=== PATIENT | male | born 1975 | race Caucasian/White ===

== ENCOUNTER 2016-05-17 21:10 | Emergency (ER) | payer SELFPAY ==
[~2016-05-17 21:10] MED LIST: Sodium Chloride 0.9% 100 ML BAG ONE
[2016-05-17] MEDS ORDERED: diphenhydrAMINE HCl 50 MG/ML 1 ML VIAL ONE (21:38)
[2016-05-17] MEDS ORDERED: Metoclopramide HCl 10 MG/2 ML VIAL ONE (21:38)
[2016-05-17] MEDS ORDERED: Ketorolac Tromethamine 30 MG/ML VIAL ONE (22:19)
--- NOTE | 2016-05-17 23:12 | ERRECORD ---
[facility] EMERGENCY RECORD ADMIN (21:56 BCRI) MERGE: Ambulance Tue May 17, 2016 21:00. HPI HEADACHE CHIEF COMPLAINT: Patient presents for evaluation of migraine headache. (23:00 ALMO) HISTORIAN: History provided by patient. (23:00 ALMO) LOCATION: Symptoms are localized, most severe in the frontal region. (23:00 ALMO) QUALITY: Described as similar to previous episodes. (23:00 ALMO) SEVERITY: Maximum severity of symptoms mild, Currently symptoms are severe. (23:00 ALMO) TIME COURSE: Gradual onset of symptoms, Date and time of onset was 05/17/2016 17:00, Symptoms are worsening. (23:00 ALMO) ASSOCIATED WITH: No associated symptoms. (23:00 ALMO) EXACERBATED BY: Patient's condition exacerbated by nothing. (23:00 ALMO) RELIEVED BY: Patient's condition relieved by nothing. (23:00 ALMO) E/M CAVEAT: Emergency room caveat invoked due to, In chcf, brought by PD. (23:04 ALMO) ROS (23:05 ALMO) CONSTITUTIONAL: Historian denies chills, denies fever. NEUROLOGIC: Historian denies dizziness, denies dysphasia, denies focal weakness, reports headache, denies mental status changes. PSYCHIATRIC: in custody. NOTES: All systems reviewed, negative except as described above. PAST MEDICAL HISTORY (22:11 BCRI) MEDICAL HISTORY: Past medical history includes neurological disease, migraine headaches, Flu vaccine not up to date, Tetanus immunization up to date, Pneumococcal vaccine not up to date, Notes: Spinal fusion surgery x 2 last year.,. MALE SURGICAL HISTORY: Spinal fusion surgery x 2 last year., Surgical history of appendectomy. BACK SURGERY AND RIGHT EYE ORBIT PLATE WIRE AND SCREW FACE. PSYCHIATRIC HISTORY: No previous psychiatric history, No previous psychiatric history,. SOCIAL HISTORY: Patient denies alcohol use, Patient currently uses tobacco, smokes cigarettes, daily, Patient smokes 1 pack per day, Patient denies alcohol use, Patient denies drug use, Patient currently uses tobacco, smokes cigarettes, daily, Patient has smoked for 20 years, Lives at home, with family. FAMILY HISTORY: Family istory is not significant, Family istory is not significant. KNOWN ALLERGIES No Known Allergies: Source: Patient CURRENT MEDICATIONS (22:32 BCRI) &a-1R&a+25V*p+0X*g6442R*c202B*c15G*c2P*p-0X&a-25V&a+1R Name: Elio Hayes : 1975 M40 MedRec: [id number] AcctNum: [id number] Prepared: neema May 17, 2016 23:15 by Interface Page 1 of 3 pMD [facility] EMERGENCY RECORD None VITAL SIGNS VITAL SIGNS: Pulse: 84, Resp: 17, Temp: 98.5 (Oral), O2 sat: 96 on Room Air, Time: 05/17/2016 22:10. (22:10 BCRI) BP: 122/74, Pulse: 77, Resp: 16, Pain: 5, O2 sat: 98 on Room Air, Time: 05/17/2016 22:24. (22:24 BCRI) BP: 138/76, Pulse: 75, Resp: 16, Pain: 0, O2 sat: 99 on ra, Time: 05/17/2016 22:45. (22:45 BCRI) PHYSICAL EXAM (23:05 ALMO) CONSTITUTIONAL: Vital Signs Reviewed. HEAD: Head exam included findings of head atraumatic, normocephalic. EYES: Pupils equally round and reactive to light, Extraocular muscles intact. ENT: Mouth exam normal, mucous membranes moist. NECK: Neck exam included findings of normal range of motion, Trachea midline. RESPIRATORY CHEST: Respiratory exam included findings of no respiratory distress. CARDIOVASCULAR: Cardiovascular exam included findings of heart rate regular rate and rhythm. ABDOMEN MALE: Abdominal exam included findings of abdomen nontender. BACK: Back exam included findings of normal inspection. NEURO: [place] coma scale 15, Neuro exam findings include patient oriented to person, place and time, Speech normal, Gait normal, Memory normal, Cranial nerves intact, no focal motor deficits, no cerebellar deficits, no nystagmus. SKIN: Skin exam included findings of skin warm, dry, and normal in color. MEDICATION ADMINISTRATION SUMMARY Drug Name: *Benadryl injection, Dose Ordered: 12.5 mg, Route: IV Push, Status: Given, Time: 22:27 05/17/2016, Drug Name: *Toradol intravenous, Dose Ordered: 30 mg, Route: IV Push, Status: Given, Time: 22:23 05/17/2016, Drug Name: *Reglan injection, Dose Ordered: 10 mg, Route: IV Push, Status: Given, Time: 21:56 05/17/2016, *Additional information available in notes, Detailed record available in Medication Service section. DOCTOR NOTES (23:08 TERRY) RE-EVALUATION: Routine re-evaluation, after administration of analgesics, Routine re-evaluation, after administration of antiemetics, The patient's condition has improved, Pt sleeping. &a-1R&a+25V*p+0X*y9972N*c202B*c15G*c2P*p-0X&a-25V&a+1R Name: Elio Hayes : 1975 M40 MedRec: [id number] AcctNum: [id number] Prepared: MonMay 17, 2016 23:15 by Interface Page 2 of 3 pMD [facility] EMERGENCY RECORD PROBLEM LIST No recorded problems DIAGNOSIS (23:01 ADEA) FINAL: PRIMARY: Chronic migraine. PRESCRIPTION No recorded prescriptions DISPOSITION (23:01 ADEA) PATIENT: Disposition Type: Discharge, Disposition: Discharge to Intermediate, Disposition Transport: Police, Condition: Improved. Patient left the department. Lopez: MAVERICK=KENNY Soto, Saleem STEWART=MD Alejandro, Christos PARIKH=KENNY Ludwig, Huma &a-1R&a+25V*p+0X*o1045A*c202B*c15G*c2P*p-0X&a-25V&a+1R Name: Elio Hayes : 1975 M40 MedRec: [id number] AcctNum: [id number] Prepared: MonMay 17, 2016 23:15 by Interface Page 3 of 3 pMD MTDD
--- NOTE | 2016-05-17 23:22 | PICIS ---
[facility] EMERGENCY RECORD ADMIN MERGE: Ambulance MonMay 17, 2016 21:00. (21:56 BCRI) TRIAGE (21:56 BCRI) TRIAGE NOTES: onset of s/s at 1700; pt reports vomiting x3 today; hx of migraines, off of fioricet for 4-5 months. (21:56 BCRI) PATIENT: NAME: Elio Hayes, AGE: 40, GENDER: male, : Mon1975, TIME OF GREET: MonMay 17, 2016 21:10, PREFERRED LANGUAGE: [place]ankan, ETHNICITY: Not or , FALL RISK: NO, ECODE BILLING MAP: [facility], SSN: [id number], Zip Code: [address], KG WEIGHT: 122.47, PHONE: , , , PERSON ID: [id number], PCP: Head. (21:56 BCRI) COMPLAINT: MIGRAINE, NAUSEA. (21:56 BCRI) ADMISSION: URGENCY: 3 Urgent, ADMISSION SOURCE: Detention/Correction, TRANSPORT: AMBULANCE - [facility], BED: TRIAGE. (21:56 BCRI) SIRS SCORING: Heart Rate 55-109 (0), Temp range 96.8-101.1 (0), respiratory rate 12-24 (0), Mental Status altered: no (0), Infection or Suspected Infection: No. (22:11 BCRI) TRIAGE SCREENING: Patient denies suicidal ideation, Patient denies presence of domestic violence. (22:11 BCRI) TREATMENTS IN PROGRESS: Site: LAC, Gauge: 20, Medications Given, 4 mg zofran. (22:11 BCRI) PROVIDERS: TRIAGE NURSE: Huma Ludwig RN. (21:56 BCRI) VITAL SIGNS: Pulse 84, Resp 17, Temp 98.5, (Oral), O2 Sat 96, on Room Air, Time 05/17/2016 22:10. (22:10 BCRI) PREVIOUS VISIT ALLERGIES: No Known Allergies. (21:56 BCRI) No Known Allergies. (22:11 BCRI) KNOWN ALLERGIES No Known Allergies: Source: Patient CURRENT MEDICATIONS (22:32 BCRI) None VITAL SIGNS VITAL SIGNS: Pulse: 84, Resp: 17, Temp: 98.5 (Oral), O2 sat: 96 on Room Air, Time: 05/17/2016 22:10. (22:10 BCRI) BP: 122/74, Pulse: 77, Resp: 16, Pain: 5, O2 sat: 98 on Room Air, Time: 05/17/2016 22:24. (22:24 BCRI) BP: 138/76, Pulse: 75, Resp: 16, Pain: 0, O2 sat: 99 on ra, Time: 05/17/2016 22:45. (22:45 BCRI) NURSING ASSESSMENT: HEADACHE (22:31 BCRI) CONSTITUTIONAL: See down time forms for nursing assessment. NURSING PROCEDURE: DISCHARGE NOTE (22:45 BCRI) DISCHARGE: Patient discharged to home, ambulating without &a-1R&a+25V*p+0X*h6260G*c202B*c15G*c2P*p-0X&a-25V&a+1R Name: Elio Hayes : 1975 M40 MedRec: [id number] AcctNum: [id number] Prepared: Emerald May 17, 2016 23:22 by Interface Page 1 of 6 pMD [facility] EMERGENCY RECORD assistance, Other, mode of transportation: Guard from detention, accompanied by law enforcement, Summary of Care printed/ provided, Transition record given to patient, Discharge instructions given to patient, Simple or moderate discharge teaching performed, Above person(s) verbalized understanding of discharge instructions and follow-up care, Patient treated and evaluated by physician, Notes: Patient and guard sent with original copy of return to detention form. BELONGINGS: Belongings and valuables with patient at time of discharge include:, Belongings remain with patient, Valuables remain with patient. VITAL SIGNS: BP: 138, / 76, Pulse: 75, Resp: 16, Pain: 0, O2 sat: 99, on: ra. NURSING PROCEDURE: IV PATIENT IDENITIFIER: Patient's identity verified by patient stating name, Patient's identity verified by patient stating date. (22:13 BCRI) IV SITE 1: IV established, to the left antecubital, using a 20 gauge catheter, Saline lock established, Notes: est captain's assistant per EMS. (22:13 BCRI) FOLLOW-UP SITE 1: IV discontinued, due to patient being discharged, catheter intact, Notes: pressure dressing applied. (22:46 BCRI) NURSING PROCEDURE: NURSE NOTES NURSES NOTES: Notes: Late entry due to downtime: initial vitals as follows at 2145 BP - 137/67 HR - 80 O2 - 97% on RA Temp - 98.5 oral Resp - 19. (22:12 BCRI) Notes: patient resting in bed with eyes closed and lights dimmed per comfort; awaiting ERMD re-eval prior to dc instructions. (22:36 BCRI) MEDICATION ADMINISTRATION SUMMARY Drug Name: *Benadryl injection, Dose Ordered: 12.5 mg, Route: IV Push, Status: Given, Time: 22:27 05/17/2016, Drug Name: *Toradol intravenous, Dose Ordered: 30 mg, Route: IV Push, Status: Given, Time: 22:23 05/17/2016, Drug Name: *Reglan injection, Dose Ordered: 10 mg, Route: IV Push, Status: Given, Time: 21:56 05/17/2016, *Additional information available in notes, Detailed record available in Medication Service section. MEDICATION SERVICE Benadryl injection: Order: Benadryl injection (diphenhydramine &a-1R&a+25V*p+0X*h6020C*c202B*c15G*c2P*p-0X&a-25V&a+1R Name: Elio Hayes : 1975 M40 MedRec: [id number] AcctNum: [id number] Prepared: MonMay 17, 2016 23:22 by Interface Page 2 of 6 pMD [facility] EMERGENCY RECORD HCl) - Dose: 12.5 mg : IV Push Schedule: Now Notes: Read back and verified, Verbal Order Ordered by: Christos Allen MD Entered by: Huma Ludwig RN MonMay 17, 2016 22:24 Documented as given by: Huma Ludwig RN MonMay 17, 2016 22:27 Patient, Medication, Dose, Route and Time verified prior to administration. Amount given: 12.5 mg, IV SITE #1 IVP, subsequent different medication, Slowly, Awake and alert- acceptable, Connections checked prior to administration, Line traced prior to administration, Catheter placement confirmed via flush prior to administration, IV site without signs or symptoms of infiltration during medication administration, No swelling during administration, No drainage during administration, IV flushed after administration, Correct patient, time, route, dose and medication confirmed prior to administration, Patient advised of actions and side-effects prior to administration, Allergies confirmed and medications reviewed prior to administration, Patient in position of comfort, Side rails up, Cart in lowest position, Family at bedside, administered at 2145 during down time. Reglan injection: Order: Reglan injection (metoclopramide HCl) - Dose: 10 mg : IV Push Schedule: Now Notes: Read back and verified, Verbal Order Ordered by: Christos Allen MD Entered by: Huma Ludwig RN MonMay 17, 2016 22:24 Documented as given by: Huma Ludwig RN MonMay 17, 2016 21:56 Patient, Medication, Dose, Route and Time verified prior to administration. Amount given: 10 mg, IV SITE #1 added to existing IV Fluid, Type: normal saline, Amount of fluid remainin ml, Connections checked prior to administration, Line traced prior to administration, Catheter placement confirmed via flush prior to administration, IV site without signs or symptoms of infiltration during medication administration, No swelling during administration, No drainage during administration, IV flushed after administration, Correct patient, time, route, dose and medication confirmed prior to administration, Patient advised of actions and side-effects prior to administration, Allergies confirmed and medications reviewed prior to administration, Patient in position of comfort, Side rails up, Cart in lowest position, given at 2145 during downtime. : Follow Up : Response assessment performed, No signs or symptoms of allergic reaction noted, _IV SITE #1:_, Medication infusion discontinued, on MonMay 17, 2016 22:15, 20 minutes, ., Total amount infused: 100 ml, IV Line flushed after administration. (22:31 BCRI) Toradol intravenous: Order: Toradol intravenous (ketorolac tromethamine) - Dose: 30 mg : IV Push Schedule: Now Notes: per vov &a-1R&a+25V*p+0X*n1118N*c202B*c15G*c2P*p-0X&a-25V&a+1R Name: AdairElio : 1975 M40 MedRec: [id number] AcctNum: [id number] Prepared: MonMay 17, 2016 23:22 by Interface Page 3 of 6 pMD [facility] EMERGENCY RECORD Read back and verified, Verbal Order Ordered by: Christos Allen MD Entered by: Huma Ludwig RN MonMay 17, 2016 22:23 Documented as given by: Huma Ludwig RN neema May 17, 2016 22:23 Patient, Medication, Dose, Route and Time verified prior to administration. Amount given: 30 mg, IV SITE #1 IVP, subsequent different medication, Slowly, Awake and alert- acceptable, Connections checked prior to administration, Line traced prior to administration, Catheter placement confirmed via flush prior to administration, IV site without signs or symptoms of infiltration during medication administration, No swelling during administration, No drainage during administration, IV flushed after administration, Correct patient, time, route, dose and medication confirmed prior to administration, Patient advised of actions and side-effects prior to administration, Allergies confirmed and medications reviewed prior to administration, Patient in position of comfort, Side rails up, Cart in lowest position, guard at bedside. HPI HEADACHE CHIEF COMPLAINT: Patient presents for evaluation of migraine headache. (23:00 ALMO) HISTORIAN: History provided by patient. (23:00 ALMO) LOCATION: Symptoms are localized, most severe in the frontal region. (23:00 ALMO) QUALITY: Described as similar to previous episodes. (23:00 ALMO) SEVERITY: Maximum severity of symptoms mild, Currently symptoms are severe. (23:00 ALMO) TIME COURSE: Gradual onset of symptoms, Date and time of onset was 05/17/2016 17:00, Symptoms are worsening. (23:00 ALMO) ASSOCIATED WITH: No associated symptoms. (23:00 ALMO) EXACERBATED BY: Patient's condition exacerbated by nothing. (23:00 ALMO) RELIEVED BY: Patient's condition relieved by nothing. (23:00 ALMO) E/M CAVEAT: Emergency room caveat invoked due to, In detention, brought by PD. (23:04 ALMO) ROS (23:05 ALMO) CONSTITUTIONAL: Historian denies chills, denies fever. NEUROLOGIC: Historian denies dizziness, denies dysphasia, denies focal weakness, reports headache, denies mental status changes. PSYCHIATRIC: in custody. NOTES: All systems reviewed, negative except as described above. PAST MEDICAL HISTORY (22:11 BCRI) MEDICAL HISTORY: Past medical history includes neurological disease, migraine headaches, Flu vaccine not up to date, Tetanus immunization up to date, Pneumococcal vaccine not up to date, Notes: Spinal fusion surgery x 2 last year.,. MALE SURGICAL HISTORY: Spinal fusion surgery x 2 last &a-1R&a+25V*p+0X*v6195J*c202B*c15G*c2P*p-0X&a-25V&a+1R Name: Elio Hayes : 1975 M40 MedRec: [id number] AcctNum: [id number] Prepared: MonMay 17, 2016 23:22 by Interface Page 4 of 6 pMD [facility] EMERGENCY RECORD year., Surgical history of appendectomy. BACK SURGERY AND RIGHT EYE ORBIT PLATE WIRE AND SCREW FACE. PSYCHIATRIC HISTORY: No previous psychiatric history, No previous psychiatric history,. SOCIAL HISTORY: Patient denies alcohol use, Patient currently uses tobacco, smokes cigarettes, daily, Patient smokes 1 pack per day, Patient denies alcohol use, Patient denies drug use, Patient currently uses tobacco, smokes cigarettes, daily, Patient has smoked for 20 years, Lives at home, with family. FAMILY HISTORY: Family istory is not significant, Family istory is not significant. PHYSICAL EXAM (23:05 ALMO) CONSTITUTIONAL: Vital Signs Reviewed. HEAD: Head exam included findings of head atraumatic, normocephalic. EYES: Pupils equally round and reactive to light, Extraocular muscles intact. ENT: Mouth exam normal, mucous membranes moist. NECK: Neck exam included findings of normal range of motion, Trachea midline. RESPIRATORY CHEST: Respiratory exam included findings of no respiratory distress. CARDIOVASCULAR: Cardiovascular exam included findings of heart rate regular rate and rhythm. ABDOMEN MALE: Abdominal exam included findings of abdomen nontender. BACK: Back exam included findings of normal inspection. NEURO: [place] coma scale 15, Neuro exam findings include patient oriented to person, place and time, Speech normal, Gait normal, Memory normal, Cranial nerves intact, no focal motor deficits, no cerebellar deficits, no nystagmus. SKIN: Skin exam included findings of skin warm, dry, and normal in color. EVENTS TRANSFER: Triage to Emergency Triage. (Tue May 17, 2016 21:56 BCRI) Emergency Triage to Main ED -05. (22:04 SRIRAM) Emergency Main ED -05 to Holding. (22:46 BCRI) Removed from Emergency Holding. (23:01 ADEA) DOCTOR NOTES (23:08 TERRY) RE-EVALUATION: Routine re-evaluation, after administration of analgesics, Routine re-evaluation, after administration of antiemetics, The patient's condition has improved, Pt sleeping. PROBLEM LIST No recorded problems &a-1R&a+25V*p+0X*g4998V*c202B*c15G*c2P*p-0X&a-25V&a+1R Name: Elio Hayes Yuniel : 1975 M40 MedRec: [id number] AcctNum: [id number] Prepared: Emerald May 17, 2016 23:22 by Interface Page 5 of 6 pMD [facility] EMERGENCY RECORD DIAGNOSIS (23:01 ADEA) FINAL: PRIMARY: Chronic migraine. DISPOSITION (23:01 ADEA) PATIENT: Disposition Type: Discharge, Disposition: Discharge to Detention, Disposition Transport: Police, Condition: Improved. Patient left the department. PRESCRIPTION No recorded prescriptions IMAGING RETURN TO [facility] FORM: Image captured from scanner. (22:41 BCRI) *DISCHARGE INSTRUCTIONS RECEIPT: Image captured from scanner. (22:44 BCRI) Page 2 added. Image captured from scanner. (22:44 BCRI) EMS REPORT SHEET: Image captured from scanner. (22:50 BCRI) *SUPPLY CHARGE SHEET: Image captured from scanner. (22:50 BCRI) DOWNTIME FORMS: Image captured from scanner. (22:50 BCRI) Page 2 added. Image captured from scanner. (22:51 BCRI) Page 3 added. Image captured from scanner. (22:51 BCRI) ADMIN DIGITAL SIGNATURE: MD Allen Alberto. (23:09 TERRY) Lopez: ADEA=KENNY Soto, Saleem STEWART=MD Allen Alberto BCRI=KENNY Ludwig, Huma BHATIA=KENNY Meredith, Tiny &a-1R&a+25V*p+0X*w8742J*c202B*c15G*c2P*p-0X&a-25V&a+1R Name: Elio Hayes Yuniel : 1975 M40 MedRec: [id number] AcctNum: [id number] Prepared: Emerald May 17, 2016 23:22 by Interface Page 6 of 6 pMD MTDD
== END 2016-05-17 22:45 ==
LOC: MADERS 21:10
DX: G43.809 Other migraine, not intractable, without status migrainosus (principal); F17.210 Nicotine dependence, cigarettes, uncomplicated
CPT/HCPCS: 96365; 96375; J1200; J1885; J2765; J7050